=== PATIENT | female | born 1985 | race Two or more races ===

== ENCOUNTER 2025-04-09 17:22 | Emergency (ER) | payer MEDICAID, OTHER ==
[~2025-04-09] VITALS: Ht 160 cm; Wt 59.0 kg
[2025-04-09] MEDS: IV NS 0.9% 1,000 ML BAG IV ONE (18:01)
[2025-04-09 18:08] LABS: ABG BASE EXCESS -0.8 mmol/L (-2.0-3.0); ABG OXYGEN SATURATION 93.6 % (94.0-98.0); ABG PCO2 26.2 mmHg (32.0-45.0); ABG PH 7.513 (7.350-7.450); ABG PO2 66.9 mmHg (83.0-108.0); ABG TOTAL HEMOGLOBIN 14.5 G/dL (12.0-16.0); FRACTIONATED INSPIRED OXYGEN 21.0 %; SITE, ABG RIGHT RADIAL
[2025-04-09 18:08] LABS: PLATELET COUNT (AUTO) 103 K/uL (150-450); RED BLOOD CELL COUNT(AUTO) 4.90 MIL/uL (4.0-5.2); RED CELL DISTRIBUTION WIDTH 12.6 % (11.5-15.0); WHITE BLOOD COUNT (AUTO) 9.0 K/uL (4.3-11.0)
[2025-04-09 18:14] LABS: CALCIUM, SERUM 9.4 mg/dL (8.5-10.1); CREATININE 0.7 mg/dL (0.6-1.3); SODIUM SERUM 137.0 mmol/L (136-145); UREA NITROGEN, BLOOD 17.0 mg/dL (7-18)
[2025-04-09] MEDS ORDERED: ONDANSETRON HCL/PF 4 MG/2 ML VIAL ONE (18:15)
[2025-04-09 18:19] LABS: ASPARTATE AMINOTRANSFERASE 13.0 U/L (15-37); TOTAL PROTEIN, SERUM 8.3 g/dL (6.4-8.2)
[2025-04-09] MEDS: ONDANSETRON HCL/PF 4 MG/2 ML VIAL IV ONE (18:30)
[2025-04-09] MEDS ORDERED: POTASSIUM CHLORIDE 20 MEQ TAB.PRT.SR PO ONE (18:36)
[2025-04-09] MEDS: POTASSIUM CHLORIDE 20 MEQ TAB.PRT.SR PO ONE (18:38)
[2025-04-09 18:43] LABS: APPEARANCE,URINE CLEAR (CLEAR); BLOOD, URINE NEGATIVE Ery/uL (NEGATIVE); LEUKOCYTE ESTERASE ,URINE NEGATIVE (NEGATIVE); NITRITE, URINE NEGATIVE (NEGATIVE); UGLUCOSE NEGATIVE (NEGATIVE)
[2025-04-09 18:44] LABS: AMPHETAMINE, URINE NEGATIVE (NEGATIVE); BARBITURATE, URINE NEGATIVE (NEGATIVE); BENZODIAZEPINE, URINE NEGATIVE (NEGATIVE); COCCAINE, URINE NEGATIVE (NEGATIVE); OPIATE, URINE NEGATIVE (NEGATIVE)
[2025-04-09 18:45] LABS: CANNABINOID, URINE POSITIVE (NEGATIVE)
[2025-04-09 18:56] LABS: PREGNANCY TEST URINE QUAL NEGATIVE (NEGATIVE)
[2025-04-09 19:05] LABS: ADD URINE CULTURE YES
[2025-04-09 19:39] VITALS: BP 120/80; TEMP 98; O2SAT 100
== END 2025-04-09 19:40 | disposition home or self-care (01) ==
LOC: ER 17:22
DX: F45.8 Other somatoform disorders (principal); E87.6 Hypokalemia; Z79.899 Other long term (current) drug therapy
CPT/HCPCS: 99285; 96374; 71045; 96361; 93005; 82803; 85025; 80048; 83690; 80076; 84703; 36415; 80307; 81001; J2405; 87086-TC